=== PATIENT | female | born 1960 | race Caucasian/White ===

== ENCOUNTER 2022-11-01 10:58 | Emergency (ER) | payer BC, SELFPAY ==
--- NOTE | 2022-11-01 11:02 | ED.URI ---
HPI - URI/Sore Throat General Chief Complaint: Upper Respiratory Infection Stated Complaint: sore throat,headache,chills Time Seen by Provider: 11/01/22 11:02 Source: patient Mode of arrival: ambulatory Limitations: no limitations History of Present Illness HPI Narrative: Jalyn is a 62-year-old female patient presenting to the clinic today with complaints of sore throat, headache, and chills x1 day. She reports no known fever. She denies any known exposure to anybody with COVID, flu, or strep. Reports that she does get strep throat frequently. MD elicited complaint: sore throat and nasal congestion Related Data Home Medications Medication Instructions Recorded Confirmed ascorbate calcium (vitamin C) 500 500 mg PO DAILY 11/01/22 11/01/22 mg capsule cholecalciferol (vitamin D3) 25 25 mcg PO DAILY 11/01/22 11/01/22 mcg (1,000 unit) capsule (Vitamin D3) omeprazole 40 mg capsule,delayed 40 mg PO DAILY 11/01/22 11/01/22 release spironolactone 100 mg tablet 100 mg PO DAILY 11/01/22 11/01/22 Allergies Allergy/AdvReac Type Severity Reaction Status Date / Time Sulfa (Sulfonamide Allergy Vomiting Verified 11/01/22 11:15 Antibiotics) amoxicillin [From Augmentin] AdvReac Vomiting Verified 11/01/22 11:15 clavulanic acid AdvReac Vomiting Verified 11/01/22 11:15 [From Augmentin] Review of Systems Review of Systems: Pertinent positives per HPI. Patient denies any fever, rash, headache, visual changes, dizziness, shortness of breath, chest pain, palpitations, nausea, vomiting, diarrhea, constipation, abdominal pain, or any urinary issues. PMFSH Comments At the time of my signature, I reviewed and agree with the nursing past medical, surgical, social, and family history. There is no relevant family history pertinent to the patient complaint. Exam Narrative: General: Well-developed, well nourished, in no apparent distress Head: Normocephalic, atraumatic Eyes: Pupils equally round and reactive to light bilaterally, EOM intact, sclera and conjunctive clear, no discharge, lids normal Ears: TMs intact and clear, ear canals clear, no drainage, grossly hearing normal. Nose: Nares patent, clear nasal discharge, no inflammation, no sinus tenderness. Mouth: Oral pharynx without lesions or masses, good dentition, MMM. Postnasal drip Neck: Supple, trachea midline, no enlargement of anterior or posterior cervical nodes, no thyroid masses or goiter palpable. Cardio: Regular rate and rhythm, s1 and s2 normal, no murmur appreciated. Resp: Clear to auscultation bilaterally, no rhonchi, rales, wheezing or rubs Course Course Emergency Course: Portions of this record may have been created with voice recognition software. Level of Care: Express Care Visit Vital Signs Vital signs: Vital Signs Temperature 36.6 C 11/01/22 11:20 Pulse Rate 86 11/01/22 11:20 Respiratory Rate 16 11/01/22 11:20 Blood Pressure 147/72 H 11/01/22 11:20 Pulse Oximetry 100 11/01/22 11:20 Temperature 36.6 C 11/01/22 11:20 Pulse Rate 86 11/01/22 11:20 Respiratory Rate 16 11/01/22 11:20 Blood Pressure 147/72 H 11/01/22 11:20 Pulse Oximetry 100 11/01/22 11:20 Vital signs reviewed MDM - URI/Sore Throat MDM Narrative Medical decision making narrative: At the time of visit patient is resting comfortably on the exam table. COVID and influenza testing were negative. I suspect the patient URI/pharyngitis/viral syndrome. Supportive measures were discussed with the patient she voiced understanding of discharge instructions and agrees to treatment plan. Strep culture was obtained and sent to the lab. Differential Diagnosis Differential diagnosis: Likely upper respiratory infection, otitis media, sinusitis, viral infection, bronchitis, influenza, pharyngitis and other (COVID) Lab Data Labs: Influenza A Screen Negative Reference Range: Negative
[2022-11-01 11:20] VITALS: BP 147/72; PULSE 86; RESP 16; TEMP 36.6; O2SAT 100
== END 2022-11-01 11:50 | disposition home or self-care (01) ==
PROVIDERS: Emergency Provider Nurse Practitioner Family; PCP Family Medicine
DX: J02.8 Acute pharyngitis due to other specified organisms (principal); Z20.822 Contact with and (suspected) exposure to COVID-19
CPT/HCPCS: 87081; 87426; 87804; 99213; C9803; G0463

== ENCOUNTER 2023-07-06 21:53 | Emergency (ER) | payer MEDICARE, SELFPAY ==
[2023-07-06 21:55] VITALS: BP 152/58; PULSE 85; RESP 14; TEMP 36.4; O2SAT 97
[2023-07-07 01:48] VITALS: BP 150/53; PULSE 78; RESP 14; TEMP 36.6; O2SAT 100
--- NOTE | 2023-07-07 02:29 | ED.WOUNDLAC ---
HPI - Wound/Laceration General Chief Complaint: Wound/Laceration Stated Complaint: R FINGER LAC Time Seen by Provider: 07/07/23 02:01 Source: patient Mode of arrival: ambulatory Limitations: no limitations History of Present Illness HPI narrative: Patient is a 63-year-old female who presents to the ED with report of a laceration to her right fifth digit. Patient reports she was carrying something out onto her porch tonight when she tripped over a hose and fell, hitting her hand against her patio furniture. She sustained a laceration to her right fifth digit just distal to her MCP joint. Denies any numbness or tingling. Tetanus status unknown. Related Data Home Medications Medication Instructions Recorded Confirmed ascorbate calcium (vitamin C) 500 500 mg PO DAILY 11/01/22 11/01/22 mg capsule cholecalciferol (vitamin D3) 25 25 mcg PO DAILY 11/01/22 11/01/22 mcg (1,000 unit) capsule (Vitamin D3) omeprazole 40 mg capsule,delayed 40 mg PO DAILY 11/01/22 11/01/22 release spironolactone 100 mg tablet 100 mg PO DAILY 11/01/22 11/01/22 Allergies Allergy/AdvReac Type Severity Reaction Status Date / Time Sulfa (Sulfonamide Allergy Vomiting Verified 11/01/22 11:15 Antibiotics) amoxicillin [From Augmentin] AdvReac Vomiting Verified 11/01/22 11:15 clavulanic acid AdvReac Vomiting Verified 11/01/22 11:15 [From Augmentin] Review of Systems Review of Systems: CONSTITUTIONAL: Denies fever, chills, or sweats. SKIN: See HPI. NEUROLOGIC: Denies tingling, numbness, or weakness. All systems reviewed & are unremarkable except as noted in HPI and below Exam Narrative: GENERAL: Well appearing, well-nourished, non-toxic, in no acute distress. HEAD: Normocephalic, atraumatic. NECK: Supple. No adenopathy, no masses. RESPIRATORY: Airway patent, respirations nonlabored. Clear to auscultation bilaterally, no rales, rhonchi, wheezing. CARDIOVASCULAR: Regular rate and rhythm without murmurs, rubs, or gallops. Radial pulses 2+ and equal bilaterally. MUSCULOSKELETAL: Moves all extremities. Strength/ROM intact without gross deformities. Full range of motion of right fingers. Minimal tenderness over right fifth mcp joint. SKIN: Warm, dry, normal color. No rashes. 1.5 cm linear laceration horizontal just distal to right fifth MCP joint, no active bleeding. NEURO: A&O X3. Speech clear. Cranial nerves II-XII grossly intact. Steady gait. No ataxic movements. PSYCHIATRIC: Appropriate mood and affect. Normal interaction. Course Vital Signs Vital signs: Vital Signs Temperature 97.6 F 07/06/23 21:55 Pulse Rate 85 07/06/23 21:55 Respiratory Rate 14 07/06/23 21:55 Blood Pressure 152/58 H 07/06/23 21:55 Pulse Oximetry 97 07/06/23 21:55 Oxygen Delivery Room Air 07/06/23 21:55 Temperature 98 F 07/07/23 01:48 Pulse Rate 78 07/07/23 01:48 Respiratory Rate 14 07/07/23 01:48 Blood Pressure 150/53 H 07/07/23 01:48 Pulse Oximetry 100 07/07/23 01:48 Oxygen Delivery Room Air 07/06/23 21:55 Procedures Laceration Laceration 1: Date: 07/07/23 Time: 02:50 Site: hand (5th digit) Side (If applicable): right Size (cm): 1.5 Description: linear Depth: simple, single layer Local Anesthetic: lidocaine 1% Amount of anesthesia used (mL): 4 Pre-repair: wound explored and irrigated ====== Skin Level ====== Skin layer closed with: nylon Size (cm): 5-0 Number of sutures: 3 Technique: simple, interrupted ====== Subcutaneous Layer ====== ====== Muscle Layer ====== ====== Tendon Layer ====== MDM - Wound/Laceration MDM Narrative Medical decision making narrative: Laceration repaired without complications. Tetanus updated. Patient given wound care instructions and reasons to return. Discharged in stable condition. Medical Records Attestation: I reviewed the patient's medical r
[2023-07-07] MEDS: TETANUS,DIPHTHERIA,AC PERTUSSIS ADULT (0.5 ML) BOOSTRIX IM (02:34)
[2023-07-07 03:08] VITALS: BP 147/65; PULSE 73; RESP 15; TEMP 36.4; O2SAT 99
== END 2023-07-07 03:10 | disposition home or self-care (01) ==
PROVIDERS: Emergency Provider Physician Assistant; PCP Family Medicine
DX: S61.216A Laceration without foreign body of right little finger without damage to nail, initial encounter (principal); W01.0XXA Fall on same level from slipping, tripping and stumbling without subsequent striking against object, initial encounter; Z23 Encounter for immunization
CPT/HCPCS: 12001; 90471; 90715; 99282